=== PATIENT | male | born 1940 | race African-American/Black ===

== ENCOUNTER 2016-07-14 11:31 | Emergency (ER) | payer OTHER ==
[2016-07-14] MEDS ORDERED: VALIUM IV ONE (13:37)
[2016-07-14] MEDS ORDERED: ZOFRAN IV ONE (13:37)
[2016-07-14] MEDS ORDERED: ANTIVERT PO ONE (13:37)
--- NOTE | 2016-07-14 13:38 | PROVIDER DOCUMENTATION ---
HPI-Neurological Disorder <Yandel Zuletai - Last Filed: 07/14/16 13:51> - General Source: family - History of Present Illness-Neuro Headache Location: denies: frontal, temporal, occipital, parietal, global, other Onset/Duration: reports: last night Timing: reports: still present, improving Context: reports: none Character of Altered Mental Status: reports: N/A Any recent trauma/injury?: reports: none Character of Deficits: denies: new weakness, altered sensation, vision problem/ glaucoma, impaired speech, impaired swallowing, decreased ability to stand, decreased ability to walk, falling New weakness or altered sensation location:: reports: none Cognitive Baseline: alert, oriented x3 Gait Baseline: walks without assistance Associated Symptoms: reports: dizziness, nausea, vomiting. denies: headache, decreased ability to walk or stand, fainting, confusion, chest pain, neck/back pain, fatigue, fever/chills, insomnia, loss of consciousness, muscle spasms, numbness in legs/feet, paresthesia, diaphoretic, ringing in ears, seizures, sleepy, slurred speech, tingling in legs/feet, trouble walking, vision changes, weakness Similar Symptoms Previously?: No Recently seen or treated by another doctor?: No <Timothy Plasencia - Last Filed: 07/14/16 15:22> - General Chief Complaint: Dizziness Stated Complaint: N/V/DIZZINESS Time Seen by Provider: 07/14/16 13:25 Allergies/Adverse Reactions: Patient Allergies Allergy/AdvReac Type Severity Reaction Status Date / Time No Known Allergies Allergy Verified 07/13/12 11:09 Home Medications: Home Medication List Medication Instructions Recorded Confirmed Last Taken Type Amlodipine Besylate [Norvasc] 1 tab PO DAILY 07/14/16 07/14/16 07/14/16 History Cephalexin [Keflex] 500 mg PO BID #10 capsule 07/14/16 Unknown Rx Losartan/Hydrochlorothiazide 1 tab PO DAILY 07/14/16 07/14/16 07/14/16 History [Losartan-Hctz 100-12.5 mg Tab] Meclizine [Antivert] 25 mg PO TID PRN #30 tablet 07/14/16 Unknown Rx Meloxicam [Mobic] 1 tab PO DAILY 07/14/16 07/14/16 07/14/16 History Metoprolol [Lopressor] 1 tab PO BID 07/14/16 07/14/16 07/14/16 History Ondansetron HCl [Zofran] 4 mg SL Q4H PRN PRN #12 tablet 07/14/16 Unknown Rx Sitagliptin Phos/Metformin HCl 1 tab PO DAILY 07/14/16 07/14/16 07/14/16 History [Janumet Xr 100-1,000 mg Tablet] - History of Present Illness-Neuro Nature of Presenting Problem: PATIENT STATES ONSET OF "DIZZY HEADED AND ROOM SPINNING" LAST NIGHT WHILE LYING IN BED. ALSO STATES HE VOMITED NUMEROUS TIMES SINCE ONSET OF SYMPTOMS. STATES DIZZINESS IMPROVED TODAY, BUT NOT RESOLVED. WORSE WITH TURNING HEAD AND WORSE WHEN HE ATTEMPTS TO MOVE FROM LYING POSITION. DENIES ANY HEAD INJURY, HEADACHE, OR CHEST PAIN. (Timothy Plasencia) Review of Systems - Adult - REVIEW OF SYSTEMS - ADULT Constitutional: reports: no symptoms reported Eyes: reports: no symptoms reported Ears, Nose, Mouth & Throat: reports: no symptoms reported Cardiovascular: reports: no symptoms reported Respiratory: reports: no symptoms reported Gastrointestinal: reports: see HPI Genitourinary: reports: no symptoms reported Musculoskeletal: reports: no symptoms reported Integumentary: reports: no symptoms reported Neurological: reports: see HPI Psychiatric: reports: no symptoms reported Endocrine: reports: no symptoms reported Hematologic/Lymphatic: reports: no symptoms reported Allergic/Immunologic: reports: no symptoms reported <Timothy Plasencia - Last Filed: 07/14/16 15:22> Past History - Adult - PAST MEDICAL HISTORY-ADULT Review of Records: reports: Nursing Assessment Review, Medications Reviewed, Social history reviewed & non-contributory. 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 Exam: normal speech, PERRL Motor/Sensory: no motor deficit, no sensory deficit Neurologic: grossly normal Integumentary: normal color, normal turgor, warm/dry Psych/Mental Status: normal mood/affect, normal thought content, normal thought process, oriented x 3 - Glascow Coma Scale Best Eye Response: (4) open spontaneously Best Verbal Response: (5) oriented Best Motor Response: (6) obeys commands <Timothy Plasencia - Last Filed: 07/14/16 15:22> Progress - EKG 1 Time of EKG reading by physician:: 13:41 EKG Read and Signed by:: Dayron Lomas EKG Interpretation (*Must complete 3 of following elements*): Normal Rate: 82 Rhythm: normal sinus rhythm Comments: normal ECG <Ekaterina Zuleta - Last Filed: 07/14/16 13:51> - REASSESSMENT Reassessment #1 Time Reassessed: 15:10 Status: other (PATIENT AWAKE/ALERT. RESPIRATIONS NONLABORED. SKIN PINK W/D. PATIENT STATES DIZZINES HAS RESOLVED AFTER MEDS GIVEN HERE. PATIENT STATES NO DIZZINESS WITH LYING STILL, WITH MOVING HEAD, OR WITH SITTING UP IN BED. STATES "I FEEL SO MUCH BETTER NOW". ALSO REPORTS NAUSEA HAS RESOLVED.) - EKG 1 Time of EKG reading by physician:: 13:48 EKG Read and Signed by:: Dayron Lomas EKG Interpretation (*Must complete 3 of following elements*): Normal Rate: 82 Rhythm: NORMAL SINUS QRS: normal [place] Interval: normal ST Wave: normal <Timothy Plasencia - Last Filed: 07/14/16 15:22> - PLAN OF CARE/RESULTS Progress/Plan/Lab Results: 1345--DISCUSSED PATIENT WITH DR. LOMAS. WILL HOLD ORDERS FOR HEAD CT AT THIS TIME, LIKELY VERTIGO. (Timothy Plasencia) Departure <Ekaterina Zuleta - Last Filed: 07/14/16 13:51> - Departure Time of Disposition Order: 15:17 Certified Medical Emergency: Emergent <Timothy Plasencia - Last Filed: 07/14/16 15:22> - Departure DIAGNOSIS: Vertigo Urinary tract infection Qualifiers: Urinary tract infection type: site unspecified Disposition: HOME 01 Condition: Good Prescriptions: Meclizine [Antivert] 25 mg PO TID PRN #30 tablet PRN Reason: Dizziness Cephalexin [Keflex] 500 mg PO BID #10 capsule Ondansetron HCl [Zofran] 4 mg SL Q4H PRN PRN #12 tablet PRN Reason: Nausea Referrals: Olinda Mcleod MD [Primary Care Provider] - (IF SYMPTOMS ARE NOT IMPROVED IN 1 -2 DAYS) Attestation - Scribe Verification/Attestation Scribe:: Ekaterina Zuleta Acting as Scribe for:: Dayron Lomas Scribe documention review:: This chart was documented by a scribe and accurately reflects the service the provider performed and the decisions made by the provider. <Ekaterina Zuleta - Last Filed: 07/14/16 13:51> - Physician/ JERILYN Attestation Patient care was provided by Advanced Practice Provider:: Yes Advanced Practice Provider:: Timothy Plasencia Advanced Practice Provider documentation review:: The Mid-level provider documentation, treatment plan and medical decision making was reviewed by the physician who agrees with all treatment and medical decision making by the MLP. <Timothy Plasencia - Last Filed: 07/14/16 15:22> Physician Attestation
[2016-07-14 13:54] LABS: MANUAL DIFF NEEDED? NO
--- NOTE | 2016-07-14 13:56 | EKG Report ---
Test Performed on : 07/14/2016 1:41:27 PM Test Reason : DIZZY, VOMITING Blood Pressure : / mmHG Vent. Rate : 082 BPM Atrial Rate : 082 BPM P-R Int : 156 ms QRS Dur : 074 ms QT Int : 378 ms P-R-T Axes : -08 008 033 degrees QTc Int : 441 ms Normal sinus rhythm. Normal ECG No previous ECGs available Unconfirmed Result
[2016-07-14 14:13] LABS: AGAP 11; ALBUMIN 4.3 g/dL (3.5-5.0); ALKALINE PHOSPHATASE 116 U/L (32-122); BUN 9 mg/dL (8-22); CHLORIDE 102 mmol/L (98-107); COSMO 282; GOT 35 U/L (10-34); GPT 65 U/L (10-44); POTASSIUM 3.9 mmol/L (3.5-5.1); SODIUM 141 mmol/L (136-145); TCO2 28 mmol/L (25-35); TOTAL PROTEIN 7.2 g/dL (6.3-8.3)
[2016-07-14 14:15] LABS: BASO% 0.2 % (0.0-0.8); EOS# 0.01 X1000 (0.0-0.7); EOS% 0.1 % (0.0-10.0); HEMATOCRIT 46.5 % (42.0-52.0); HEMOGLOBIN 15.9 g/dL (14.0-18.0); IMM GRAN# 0.06 X1000 (0.0-0.04); IMM GRAN% 0.6 % (0.0-0.5); LYMPH# 1.09 X1000 (1.2-3.4); LYMPH% 10.1 % (20.5-51.1); MCH 28.3 PG (27-31); MCHC 34.2 g/dL (33-37); MCV 82.7 FL (81-99); MONO# 0.66 X1000 (0.11-0.59); MONO% 6.1 % (1.7-9.3); NEUT% 82.9 % (42.2-75.2); PLT 250 X1000 (130-400); RBC 5.62 XMIL (4.7-6.1)
[2016-07-14 14:45] LABS: BILIRUBIN URINE NEGATIVE (NEGATIVE); BLOOD URINE NEGATIVE (NEGATIVE); CLARITY SLIGHTLY CLOUDY (CLEAR); COLOR YELLOW; URINE CULTURE PL NEEDED? NO; URINE SOURCE CLEAN CATCH
[2016-07-14 14:46] LABS: LEUKOCYTES URINE NEGATIVE (NEGATIVE); NITRITE URINE NEGATIVE (NEGATIVE); PROTEIN URINE TRACE mg/dL (NEGATIVE); UROBILINOGEN URINE NORMAL
[2016-07-14 14:47] LABS: URINE EPITHELIAL CELLS <10 /HPF (<10); URINE RBC <10 /HPF (<10)
[2016-07-14 15:48] VITALS: BP 116/59
== END 2016-07-14 15:46 | disposition home or self-care (01) ==
LOC: P.ED 11:31
DX: N39.0 Urinary tract infection, site not specified (principal); R42 Dizziness and giddiness; R11.2 Nausea with vomiting, unspecified; Z79.1 Long term (current) use of non-steroidal anti-inflammatories (NSAID); Z79.899 Other long term (current) drug therapy
CPT/HCPCS: 80053; 81001; 84484; 85025; 93005; J2405; J3360